=== PATIENT | female | born 1990 | race Caucasian/White ===

== ENCOUNTER 2019-12-06 12:59 | Outpatient (CLI) | payer BC, SELFPAY ==
[2019-12-06 13:30] LABS: Add Urine Microscopic? YES; Appearance Urine Clear (Clear); Bilirubin Urine Negative (Negative); Blood Urine Negative (Negative); Color Urine Straw (Yellow); Glucose Urine UA Negative (Negative); Ketones Urine Negative (Negative); Leukocyte Esterase Ur 1+ LEU/UL (NEGATIVE); Nitrate Urine Negative (Negative); Protein Urine Negative (Negative); Specific Grav Ur 1.014 (1.001-1.035); Squamous Epithelial Cell Urine Occasional /hpf (Few); Transitional Epi Cells Urine Rare /hpf (None Seen); Urobilinogen Urine Negative mg/dL (<2.0); WBC Urine 21-30 /hpf (0-3)
== END 2019-12-06 13:00 | disposition home or self-care (01) ==
PROVIDERS: Visit Provider Nurse Practitioner Women's Health
DX: R30.0 Dysuria (principal)
CPT/HCPCS: 81001; 87077; 87086; 87088; 87186

== ENCOUNTER 2020-12-25 14:31 | Outpatient (CLI) | payer OTHER, SELFPAY ==
--- NOTE | ~2020-12-25 | XR_ITS ---
EXAMINATION: XR abdomen/kub 1V INDICATION: Left-sided kidney stone TECHNIQUE: Supine views of the abdomen were obtained on 2 radiographs. COMPARISON: None FINDINGS: Adjacent stones measuring 10 mm and 6 mm are present in the left mid kidney. Bowel gas obsc ures visualization of the known right kidney stones. No definite stones are identified in the ureters or bladder. The lung bases are clear. The bowel gas pattern is normal. IMPRESSION: 1. Left nephrolithiasis. Reviewed, dictated and finalized at location A. IMPRESSION: 1. Left nephrolithiasis.
--- NOTE | ~2020-12-25 | CT_ITS ---
EXAMINATION: CT abdomen pelvis wo con DATE: 12/25/2020 14:58 INDICATION: Left-sided kidney stones TECHNIQUE: Computed tomography (CT) of the abdomen and pelvis was performed without intravenous contr ast. The dose-length product (DLP) was 247.16 mGy-cm. Automated exposure control and iterative recons truction technique were employed. COMPARISON: None FINDINGS: The lung bases are clear. The heart size is normal. The liver, spleen, pancreas, gallbladde r, and adrenal glands are normal. There are adjacent nonobstructing stones of the left mid kidney linda suring 12 mm and 6 mm. There are six nonobstructing stones of the right kidney which measure up to 3 mm. There is no hydronephrosis or hydroureter. No stones are identified in the ureters or bladder. Th ere are phleboliths of the pelvis. No pathologically enlarged abdominal or pelvic lymph nodes are kinjal ntified. There is no free intraperitoneal gas or evidence of bowel obstruction. A small volume of pel robyn ascites is likely physiologic. The appendix is normal. IMPRESSION: 1. Bilateral nonobstructing nephrolithiasis. Reviewed, dictated and finalized at location A.
== END 2020-12-25 14:32 | disposition home or self-care (01) ==
LOC: ANHIMG 14:32
PROVIDERS: Visit Provider Urology
DX: N20.0 Calculus of kidney (principal)
CPT/HCPCS: 74018; 74176

== ENCOUNTER → 2021-01-17 01:52 | Outpatient (CLI) | payer BC, SELFPAY ==
[2021-01-17 19:10] LABS: SARS-CoV-2 RNA PCR Negative
== END ==
PROVIDERS: Visit Provider Urology
DX: Z01.812 Encounter for preprocedural laboratory examination (principal); Z20.822 Contact with and (suspected) exposure to COVID-19
CPT/HCPCS: C9803; U0003; U0005

== ENCOUNTER 2021-01-17 10:49 | Outpatient (CLI) | payer BC, SELFPAY ==
[2021-01-17 11:15] LABS: Add Urine Microscopic? NO; Appearance Urine Clear (Clear); Bilirubin Urine Negative (Negative); Blood Urine Negative (Negative); Color Urine Colorless (Yellow); Glucose Urine UA Negative (Negative); Ketones Urine Negative (Negative); Leukocyte Esterase Ur Negative LEU/UL (Negative); Nitrate Urine Negative (Negative); Protein Urine Negative (Negative); Urobilinogen Urine Negative mg/dL (<2.0)
[2021-01-17 11:18] LABS: Specific Grav Ur 1.003 (1.001-1.035)
[2021-01-17 11:40] LABS: INR 0.9; Prothrombin Time 11.9 Seconds (11.1-14.7)
[2021-01-17 11:43] LABS: Partial Thromboplastin Time 24.5 SECONDS (22.3-36.8)
[2021-01-17 11:44] LABS: Beta HCG Quantitative < 2.39 mIU/ML
== END 2021-01-17 10:50 | disposition home or self-care (01) ==
LOC: ANHSURGERY 10:54
PROVIDERS: Visit Provider Urology
DX: N20.0 Calculus of kidney (principal); Z01.818 Encounter for other preprocedural examination
CPT/HCPCS: 36415; 81003; 84702; 85610; 85730

== ENCOUNTER 2021-01-20 02:32 | Day surgery (SDC) | payer BC, SELFPAY ==
--- NOTE | 2021-01-11 12:13 | PM.IMHP ---
H&P: HPI History of Present Illness Date/Time: 01/11/21 12:13 left kidney stone Chief Complaint: left kidney stone Review of Systems Review of Systems: All systems reviewed & are unremarkable except as noted in HPI and below Exam Const: General: cooperative and healthy appearing HENMT: Head: normal to inspection Eyes: General: appearance normal, both eyes and all related structures Resp: Effort & Inspection: normal respiratory effort and able to speak in complete sentences GI: Inspection: normal to inspection Skin: General skin exam: normal color Assessment and Plan Assessment and plan (1) Left renal stone: Code(s): N20.0 - Calculus of kidney Status: Acute Assessment and Plan: Left stent, left ESWL
[2021-01-17 09:07] VITALS: BMI 28.3
--- NOTE | 2021-01-18 10:04 | SUR.PREOP ---
Dr Cummings aware of most recent urine test results states will call in antibiotic later today and is ok to proceed with planned procedure on WedJanuary 20. This RN called and left message on patient voicemail to fern picker and start medication as prescribed
--- NOTE | 2021-01-19 13:01 | PM.IMHP ---
H&P: HPI History of Present Illness Date/Time: 01/19/21 13:01 Left renal stones/ recurrent UTI. On ABX Chief Complaint: left renal stone Review of Systems Review of Systems: All systems reviewed & are unremarkable except as noted in HPI and below [facility] Social History Social History Smoking status: Never smoker Alcohol intake: current Drinks per week: 1 Meds Home Medications and Allergies Home Medications Medication Instructions Recorded Confirmed Type sulfamethoxazole-trimethoprim 1 tablet PO HS 01/17/21 01/17/21 History Allergies Allergy/AdvReac Type Severity Reaction Status Date / Time No Known Allergies Allergy Verified 01/17/21 09:06 Exam Const: General: cooperative and healthy appearing HENMT: Head: normal to inspection Eyes: General: appearance normal, both eyes and all related structures Neck: Neck: normal visual inspection Resp: Effort & Inspection: not labored GI: Inspection: normal to inspection Skin: General skin exam: normal color Assessment and Plan Assessment and plan (1) Left renal stone: Code(s): N20.0 - Calculus of kidney Status: Acute Assessment and Plan: Left ESWL with Stetn
[2021-01-20] VITALS (7 sets, daily range): BP systolic 98–129; BP diastolic 61–79; PULSE 76–100; RESP 12–18; TEMP 36.5–36.9; O2SAT 100
--- NOTE | ~2021-01-20 | XR_ITS ---
EXAMINATION: XR abdomen/kub 1V INDICATION: Left kidney stones TECHNIQUE: Supine views of the abdomen were obtained on 2 radiographs. COMPARISON: 12/25/2020 FINDINGS: There are stones measuring 10 mm and 8 mm in the left kidney. Phleboliths are noted in the pelvis. The known punctate right kidney stones are obscured by bowel contents. The bowel gas pattern is normal. IMPRESSION: 1. Left nephrolithiasis. Reviewed, dictated and finalized at location B. IMPRESSION: 1. Left nephrolithiasis.
--- NOTE | 2021-01-20 07:13 | WPDHPUPDATE1 ---
History and Physical Update Update Date/Time: 01/20/21 07:13 History and Physical has been reviewed, including an updated exam of the patient. There are NO changes in the patient's condition. Risks, benefits, and alternatives have been discussed and questions answered. Patient agrees to proceed with procedure.
--- NOTE | 2021-01-20 07:54 | P.PNAN_ITS ---
Anes - Initial Pre Proc Eval Procedure: Operation Date: 01/20/21 10:30 Proposed Procedures p Left Extracorporeal Shock Wave Lithotripsy(Left) - Dm Cummings MD s Cystoscopy, Bilateral Stent Placement - Dm Cummings MD Date/Time: 01/20/21 07:54 Surgeon: Dm Cummings MD Pre Op Diagnosis: Left Kidney Stone Patient Data Age: 31 Gender: F Height: 1.55 m Weight: 68 kg Allergies Allergy/AdvReac Type Severity Reaction Status Date / Time No Known Allergies Allergy Verified 01/20/21 09:34 Home Medications Medication Instructions Recorded Confirmed Type sulfamethoxazole-trimethoprim 1 tablet PO HS 01/17/21 01/20/21 History ciprofloxacin HCl 250 mg PO Q12H 01/20/21 01/20/21 History Patient hx anesthesia problems: none Family hx anesthesia problems: none [facility] Past Medical History Medical History (Updated 01/20/21 @ 09:59 by John Diaz DO) Renal stones Social History Social History Smoking status: Never smoker Alcohol intake: current Drinks per week: 1 Living arrangements: with family Anes - Eval Final PreProcedure Day of Procedure 01/20/21 07:54 Patient weight: overweight Heart: regular rate and rhythm Lungs: clear to auscultation and normal air movement Airway: Mallampati scale class II Neurological: alert and oriented Last oral intake: >/= 8 hours ASA classification: II Emergent: no Anesthetic plan: proceed Anesthesia type and monitoring: general LMA and standard monitoring Informed Consent: The patient's anesthetic plan and its attendant risks and benefits were discussed with the patient/family/POA. Questions were solicited and answers provided to the satisfaction of the patient/family/POA.
[2021-01-20] MEDS: LACTATED RINGERS 1,000 ML 30 ML IV CONT ×2 (09:22→11:38)
[2021-01-20] MEDS: ceFAZolin 2 GM/D5W 50 ML 2 GM/50 ML BAG IVPB (10:47)
--- NOTE | 2021-01-20 11:45 | W.PM.PROC2 ---
Procedure Note - Detailed Date of Procedure 01/20/21 Pre-op Diagnosis Left Kidney Stone Post-op Diagnosis same Procedure Performed cystoscopy left retrograde pyelogram left stent left extracorporeal shockwave lithotripsy Surgeon Dm Cummings MD Anesthesia general Indications this is a woman with a large left renal stone as well as recurrent urinary tract infections. I offered her lithotripsy, ureteroscopy, percutaneous procedures. She opted for lithotripsy. She understands there may be more than 1 procedure required to clear her stone Findings large left renal stone x2. Narrow infundibulum Description of Procedure she is correctly identified. Informed consent obtained. From the operating room. She was given general anesthesia. She was placed in a frogleg position. She was prepped and draped in a sterile fashion. Time-out performed. She was given appropriate perioperative antibiotics. I performed cystoscopy. The bladder is exam was normal. I located the left ureteral orifice. I placed a guidewire to the kidney. I then placed a 5 Albanian angiographic catheter. I shot a retrograde pyelogram. I outlined renal anatomy. The stone was seen in the midpole calyx. The infundibulum was somewhat narrow. I then placed a 4.8 variable length stent. Proximal coil was in the upper pole kidney. Distal coil in the bladder. She was then repositioned for lithotripsy. The stone was targeted. We delivered 2500 shocks. Power level 1-4. There appeared to be excellent fragmentation of the stone within the mid pole calyx. At the conclusion she was awakened transferred to PACU in stable condition. Implants None Estimated Blood Loss 1 Drains No Packing No Pathology none sent Complications No immediate complications Condition stable Disposition PACU
== END 2021-01-20 13:10 | disposition home or self-care (01) ==
PROVIDERS: Visit Provider Urology
PROC: (CPT 50590; principal; 2021-01-20 10:30)
PROC: (CPT 52352; 2021-01-20 10:30)
DX: N20.0 Calculus of kidney (principal); Z87.440 Personal history of urinary (tract) infections
CPT/HCPCS: 50590; 52332; 36415; 74018; 81003; 84702; 85610; 85730; A9270; C1769; C1887; C2617; C9803; J0690; J1100; J2250; J2405; J2704; J3010; J7030; J7120; Q9966; U0003; U0005

== ENCOUNTER 2021-02-10 15:43 | Outpatient (CLI) | payer BC, SELFPAY ==
--- NOTE | ~2021-02-10 | XR_ITS ---
EXAMINATION: XR abdomen/kub 1V DATE: 02/10/2021 16:06 INDICATION: Bilateral nephrolithiasis post recent lithotripsy TECHNIQUE: A supine view of the abdomen on 2 radiographs was obtained. COMPARISON: 01/20/2021 FINDINGS: Left internal ureteral stent with loops formed over the expected position of the left renal pelvis an d the bladder. There is approximately 1.4 x 1.1 cm stippled appearing calcification in the mid left k idney at the site of a couple prior more homogeneous-appearing 10 mm and 6 mm left renal stones likel y reflecting fragmentation related to interval lithotripsy. There appear to be 3 additional 1-[address] one fragments projecting over the lower pole of the left kidney. No stone fragments seen along the ur eteral stent.-2 mm stone projecting over the upper pole of the right kidney. A couple small phlebolit hs in the left hemipelvis. Normal bowel gas pattern with small amount of stool scattered throughout t he colon. Lung bases are clear. Heart size is normal. IMPRESSION: 1. Stippled appearance of a 1.4 x 1.1 cm calcification the site of previously 10 mm and 6 mm stones a t the mid left kidney likely reflecting fragmentation related to interval lithotripsy with a few linwood tional tiny stone fragments at the lower pole. 2. No stone fragments seen along a left intrarenal stent which is in expected position. 3. 1-2 mm stone at the upper pole of the right kidney. Reviewed, dictated and finalized at location A. IMPRESSION: 1. Stippled appearance of a 1.4 x 1.1 cm calcification the site of previously 1 0 mm and 6 mm stones at the mid left kidney likely reflecting fragmentation rel ated to interval lithotripsy with a few additional tiny stone fragments at the lower pole. 2. No stone fragments seen along a left intrarenal stent which is in expected p osition. 3. 1-2 mm stone at the upper pole of the right kidney.
== END 2021-02-10 15:44 | disposition home or self-care (01) ==
PROVIDERS: Visit Provider Urology
DX: N20.0 Calculus of kidney (principal); Z96.0 Presence of urogenital implants
CPT/HCPCS: 74018

== ENCOUNTER 2022-05-31 17:42 | Emergency (ER) | payer BC, SELFPAY ==
[2022-05-31 17:48] VITALS: BP 128/75; PULSE 122; RESP 18; TEMP 38.2; O2SAT 100
--- NOTE | 2022-05-31 18:13 | ED.URI ---
HPI - URI/Sore Throat General Chief Complaint: Upper Respiratory Infection Stated Complaint: Sore Throat, Ears Irritation, Fever Time Seen by Provider: 05/31/22 18:13 History of Present Illness HPI Narrative: 32-year-old female presented for complaint of sore throat, fever and bilateral ear pain for 2 days. Endorses temp up to 101 at home. Took ibuprofen, mucinex and flonase. Endorses daughter is sick with a cough. She denies shortness of breath, wheezing, nausea, vomiting, diarrhea. Patient states she has taken 5 positive tests at home. LMP 05/04/2022. She will fu with obgyn. Related Data Home Medications Medication Instructions Recorded Confirmed No Home Medications 05/31/22 05/31/22 Allergies Allergy/AdvReac Type Severity Reaction Status Date / Time No Known Allergies Allergy Verified 05/31/22 18:05 Review of Systems Review of Systems: CONSTITUTIONAL: Denies body aches EYES: Denies visual changes, redness, or discharge. ENT: Denies rhinorrhea, congestion CARDIOVASCULAR: Denies chest pain, palpitations, or edema. RESPIRATORY: Denies dyspnea. GASTROINTESTINAL: Denies abdominal pain, nausea, vomiting, or diarrhea. SKIN: Denies rash, itching, or wounds. MUSCULOSKELETAL: Denies back pain, joint pain, or myalgia. NEUROLOGIC: Denies headache PMFSH Past Medical History Medical History Renal stones Social History Social History Smoking status: Never smoker Alcohol intake: current Drinks per week: 1 Exam Narrative: GENERAL: well-appearing EYES: conjunctivae clear ENT: Mucous membranes moist. TMs pearly chavez with normal light reflex bilaterally; no tragal tenderness. Oropharynx erythematous without lesions. Tonsils not enlarged and without exudate. No drooling, no hoarseness, no trismus, uvula midline. No tripod positioning, hot potato voice, or soft palate swelling. NECK: Supple. No lymphadenopathy CHEST: Clear to auscultation, breath sounds equal. No respiratory distress, speaks in full sentences. HEART: Regular rate and rhythm. No murmur heard. SKIN: Warm, dry, no rash. NEURO: Alert and oriented x3. Course Course Emergency Course: Patient is aware of diagnosis, understands and agrees to treatment plan. Anticipatory guidance given. Patient agrees to follow-up as directed and is aware of reasons to seek care at the emergency department. Portions of this record may have been created with voice recognition software Level of Care: Express Care Visit Vital Signs Vital signs: Vital Signs Temperature 100.8 F H 05/31/22 17:48 Pulse Rate 122 H 05/31/22 17:48 Respiratory Rate 18 05/31/22 17:48 Blood Pressure 128/75 05/31/22 17:48 Pulse Oximetry 100 05/31/22 17:48 Oxygen Delivery Room Air 05/31/22 17:48 Temperature 100.8 F H 05/31/22 17:48 Pulse Rate 122 H 05/31/22 17:48 Respiratory Rate 18 05/31/22 17:48 Blood Pressure 128/75 05/31/22 17:48 Pulse Oximetry 100 05/31/22 17:48 Oxygen Delivery Room Air 05/31/22 17:48 MDM - URI/Sore Throat MDM Narrative Medical decision making narrative: Neg strep and flu results reviewed with pt. Advise supportive treatments. Patient is appropriate for outpatient treatment and follow-up. Differential Diagnosis Differential diagnosis: Likely upper respiratory infection, viral infection and pharyngitis Lab Data Labs: Influenza A Screen Negative Reference Range: Negative Influenza B Screen Negative Reference Range: Negative Strep Screen Presumptive Negative *(Reference Range: Negative)* Discharge Plan Discharge Clinical Impression: Viral infection Patient Disposition: Home, Self-Care Condition: Stabl
== END 2022-05-31 18:50 | disposition home or self-care (01) ==
PROVIDERS: Emergency Provider Nurse Practitioner Family
DX: B34.9 Viral infection, unspecified (principal)
CPT/HCPCS: 87081; 87804; 87880; 99213; G0463

== ENCOUNTER → 2022-09-26 10:16 | Outpatient (CLI) | payer BC, SELFPAY ==
--- NOTE | ~2022-09-26 | US_ITS ---
EXAMINATION: US OB /maternal detail DATE: 09/26/2022 11:22 INDICATION: Encounter for screening, unspecified. TECHNIQUE: Real-time ultrasound of the pelvis was performed. COMPARISON: None. FINDINGS: There is a single living fetus in vertex presentation. The placenta is anterior, 4.4 cm from the cer vix. The cervical length is 5.0 cm on transabdominal images, which is normal. heart rate is mason ts per minute (bpm). The amniotic fluid volume is subjectively normal. The following biometric data were obtained: Biparietal diameter (BPD): 4.9 cm; head circumference (HC): 18.7 cm; abdominal circumference (AC): 15 .5 cm; femur length (FL): 3.5 cm. These measurements are concordant. Estimated weight is 386 g +/- 58 g, which correlates with the 57th percentile when 02/08/23 is us ed as estimated date of delivery. As single measurements, these parameters are each equal to the following estimated gestational ages: BPD: 20 weeks 5 days. HC: 21 weeks 0 days. AC: 20 weeks 5 days. FL: 21 weeks 1 days. estimated gestational age based solely on measurements from this exam is 20 weeks 6 days +/- 1 weeks 3 days. The cerebral ventricles, cerebellum, cisterna magna, nuchal fold, and visualized portions of the spin e are normal. The heart is normal. The diaphragm, stomach, kidneys, and bladder are normal. There are two umbilical arteries to yield a 3-vessel cord. The cord insertion is normal. IMPRESSION: 1. Single living fetus in vertex presentation. 2. Estimated weight is 386 g +/- 58 g, which correlates with the 57th percentile when 02/08/23 i s used as estimated date of delivery. 3. Normal anatomic survey. Reviewed, dictated and finalized at location A. IMPRESSION: 1. Single living fetus in vertex presentation. 2. Estimated weight is 386 g +/- 58 g, which correlates with the 57th pe rcentile when 02/08/23 is used as estimated date of delivery. 3. Normal anatomic survey.
== END ==
PROVIDERS: PCP Obstetrics & Gynecology Gynecologic Oncology; Visit Provider Obstetrics & Gynecology Gynecologic Oncology
DX: Z36.9 Encounter for antenatal screening, unspecified (principal); Z3A.20 20 weeks gestation of pregnancy
CPT/HCPCS: 76805

== ENCOUNTER 2022-12-12 12:14 | Outpatient (RCR) | payer BC, SELFPAY ==
[2022-12-13] MEDS: RHO(D) IMMUNE GLOBULIN 300 MCG/2 ML SYRINGE IM (08:21)
== END 2023-03-12 23:59 | disposition home or self-care (01) ==
LOC: ANHLAB 12:14
PROVIDERS: Visit Provider Advanced Practice Midwife
DX: Z29.13 Encounter for prophylactic Rho(D) immune globulin (principal); O36.0190 Maternal care for anti-D [Rh] antibodies, unspecified trimester, not applicable or unspecified; Z3A.00 Weeks of gestation of pregnancy not specified
CPT/HCPCS: 36415; 85461; 86850; 86900; 86901; 90384; 96372; J2790

== ENCOUNTER 2023-01-15 12:01 | Outpatient (CLI) | payer BC, SELFPAY ==
[2023-01-15 12:31] VITALS: BP 124/76; PULSE 99
[2023-01-15 12:36] LABS: Basophils Percent Auto 0.3 % (0.2-1.2); Eosinophils Absolute Auto 0.1 K/mm3 (0-0.3); Eosinophils Percent Auto 0.6 % (0-4.4); Hematocrit 32.8 % (37.0-47.0); Hemoglobin 11.1 g/dL (12.0-15.0); Immature Granulocyte Absolute 0.21 K/mm3 (0.00-0.031); Immature Granulocyte Percent A 1.8 % (0-0.5); Lymphocytes Absolute Auto 1.45 K/mm3 (0.9-3.2); Lymphocytes Percent Auto 12.7 % (18.3-44.2); Mean Corpuscular HGB Conc 33.8 g/dl (32-36); Mean Corpuscular Hemoglobin 31.8 pg (26-34); Mean Platelet Volume 8.6 fl (7.4-10.4); Monocytes Absolute Auto 0.7 K/mm3 (0.1-0.6); Monocytes Percent Auto 6.4 % (2.6-8.5); Neutrophils Absolute Auto 8.9 K/mm3 (1.3-6.7); Neutrophils Percent Auto 78.2 % (45.5-73.1); Platelet Count Result 295 k/mm3 (150-375); Red Blood Count 3.49 M/mm3 (4.2-5.4); Red Cell Distribution Width 14.3 % (11.5-14.5); White Blood Count 11.4 K/mm3 (4.5-10.0)
[2023-01-15 12:45] VITALS: BP 129/81; PULSE 111
[2023-01-15 12:46] LABS: Creatinine Urine 39.4 mg/dL; Total Protein Urine Random 13 mg/dL; Ur Ttl Prot Creatinine Ratio 0.33 mg/mg (0-0.20)
[2023-01-15 12:47] LABS: Appearance Urine Clear (Clear); Bacteria Urine None Seen /hpf; Bilirubin Urine Negative (Negative); Blood Urine Negative (Negative); Color Urine Yellow (Yellow); Glucose Urine UA Negative (Negative); Ketones Urine Negative (Negative); Leukocyte Esterase Ur Trace LEU/UL (NEGATIVE); Nitrate Urine Negative (Negative); Non Pathogenic Casts 0-2; Protein Urine Negative (Negative); RBC Urine 0-2 /hpf (0-2); Specific Grav Ur 1.007 (1.001-1.035); Squamous Epithelial Cell Urine None seen /hpf (Few); Urobilinogen Urine 0.2 mg/dL (<2.0); WBC Urine 0-5 /hpf (0-3); pH Urine 7.5 (5.0-9.0)
[2023-01-15 12:51] LABS: Alanine Aminotransferase 23 U/L (6-35); Albumin Level 3.5 g/dL (3.5-5.1); Alkaline Phosphatase 113 U/L (38-126); Anion Gap 6 mmol/L (8-16); Aspartate Amino Transferase 25 U/L (14-36); Bilirubin,Total 0.4 mg/dL (0.2-1.3); Blood Urea Nitrogen 11 mg/dL (7-17); Carbon Dioxide 24 mmol/L (22-30); Chloride 104 mmol/L (98-107); Estimated Glomerular Filt Rate > 60; Glucose 84 mg/dL (65-110); Sodium 134 mmol/L (137-145); Uric Acid 3.8 mg/dL (2.5-7.5)
[2023-01-15 13:05] LABS: Add Urine Microscopic? YES
--- NOTE | 2023-01-15 13:23 | PC.NURSE ---
Cari Campbell CNM notified of lab results, NST, vital signs. Send home with 24 hour urine. Gave patient precautions on pre-e, instructions on when to return back and 24 hour urine collection process. Patient in agreement with plan.
[2023-01-15 13:25] VITALS: BP 124/76
== END 2023-01-15 13:24 | disposition home or self-care (01) ==
LOC: ANHOBOP 12:08 → ANHOBPP 12:15
PROVIDERS: Advanced Practice Midwife; Visit Provider Obstetrics & Gynecology
DX: O13.9 Gestational [pregnancy-induced] hypertension without significant proteinuria, unspecified trimester (principal); Z3A.00 Weeks of gestation of pregnancy not specified
CPT/HCPCS: 36415; 59025; 80053; 81001; 82570; 84156; 84550; 85025; 87086; 99199

== ENCOUNTER 2023-01-16 17:26 | Outpatient (CLI) | payer BC, SELFPAY ==
[2023-01-16 17:27] VITALS: BMI 38.9
[2023-01-16 17:42] LABS: Collection Time Urine 24 HOURS
[2023-01-16 17:57] LABS: Creatinine Urine 30.6 mg/dL; Patient Weight 206 Lbs; Total Protein Urine Random 14 mg/dL
[2023-01-16 18:56] LABS: Creatinine Clearance Urine 74.7 ml/min (75-125); Total Protein Urine 24 Hr 434 mg/24hr (28-141); Total Volume 24 Hour Urine 3100 ml
[2023-01-16 19:00] LABS: Specific Gravity Ur 1.015
== END 2023-01-16 17:27 | disposition home or self-care (01) ==
LOC: ANHOBOP 17:26
PROVIDERS: Visit Provider Advanced Practice Midwife
DX: O13.9 Gestational [pregnancy-induced] hypertension without significant proteinuria, unspecified trimester (principal); Z3A.00 Weeks of gestation of pregnancy not specified
CPT/HCPCS: 81050; 82575; 84156

== ENCOUNTER 2023-01-18 10:36 | Outpatient (RCR) | payer BC, SELFPAY ==
[2023-01-18 11:35] VITALS: BP 132/78; PULSE 104
== END 2023-01-19 09:10 | disposition home or self-care (01) ==
LOC: ANHOBOP 10:36
PROVIDERS: Visit Provider Advanced Practice Midwife
DX: O14.93 Unspecified pre-eclampsia, third trimester (principal); Z3A.37 37 weeks gestation of pregnancy
CPT/HCPCS: 59025

== ENCOUNTER 2023-01-20 06:02 | Inpatient (IN) | payer BC, SELFPAY ==
[2023-01-20] VITALS (227 sets, daily range): BP systolic 92–142; BP diastolic 44–115; PULSE 25–183; TEMP 36.6–37; O2SAT 73–100; BMI 38.7
--- NOTE | 2023-01-20 06:02 | LDADM ---
This patient, Ana Goodman, was admitted to Labor/Delivery/Recovery 107 on 01/20/23 at 06:02. Plans for labor, pain management and were discussed with patient. Patient/family oriented to hospital policies and general routines including ID bracelet, bed and alarms, visiting hours, pain management, procedures, bathroom and other care routines, personal items, smoking policy, room service/diet and guest tray routines, security routines, and visiting hours. Patient/Family are encouraged to report perceived risks to care and to ask questions if they do not understand what they are told or what they should do. See OBIX for further documentation.
--- NOTE | 2023-01-20 06:38 | P.PNAN_ITS ---
Anes - Eval Pre Procedure Procedure: labor epidural Date/Time: 01/20/23 06:38 Surgeon: sugar Preop Diagnosis: pain during labor Pre Op Diagnosis: IOL Patient Data Age: 33 Gender: F Height: Weight: Allergies Allergy/AdvReac Type Severity Reaction Status Date / Time No Known Allergies Allergy Verified 01/15/23 12:35 Home Medications Medication Instructions Recorded Confirmed Type aspirin 81 mg tablet 81 mg PO DAILY 01/15/23 01/15/23 History vits no.126-ferrous fum 1 tablet PO DAILY 01/15/23 01/15/23 History 28 mg iron-folic acid 800 mcg tablet (Classic ) Patient hx anesthesia problems: none Family hx anesthesia problems: none Results Review: All pre-operative results and documents have been reviewed as part of the pre- operative evaluation. PMF Past Medical History Medical History (Updated 01/20/23 @ 06:38 by Lena Sanchez CRNA) IUP (intrauterine ), incidental Renal stones Family History Family History (Updated 01/15/23 @ 12:37 by Smiley Ellison RN) Father Hypertension Social History Social History Smoking status: Never smoker Alcohol intake: current Drinks per week: 1 Substance use: never Living arrangements: with family Spiritual care concerns: No Exam Day of Procedure 01/20/23 06:38
[2023-01-20 06:56] LABS: Basophils Percent Auto 0.4 % (0.2-1.2); Eosinophils Absolute Auto 0.1 K/mm3 (0-0.3); Hemoglobin 11.4 g/dL (12.0-15.0); Lymphocytes Absolute Auto 1.54 K/mm3 (0.9-3.2); Mean Corpuscular HGB Conc 34.5 g/dl (32-36); Mean Corpuscular Hemoglobin 31.7 pg (26-34); Mean Corpuscular Volume 91.7 fl (80-100); Mean Platelet Volume 8.7 fl (7.4-10.4); Monocytes Absolute Auto 0.6 K/mm3 (0.1-0.6); Monocytes Percent Auto 5.8 % (2.6-8.5); Neutrophils Absolute Auto 7.8 K/mm3 (1.3-6.7); Neutrophils Percent Auto 75.8 % (45.5-73.1); Platelet Count Result 302 k/mm3 (150-375); White Blood Count 10.2 K/mm3 (4.5-10.0)
[2023-01-20 07:12] LABS: Alanine Aminotransferase 23 U/L (6-35); Albumin Level 3.7 g/dL (3.5-5.1); Alkaline Phosphatase 113 U/L (38-126); Anion Gap 6 mmol/L (8-16); Aspartate Amino Transferase 25 U/L (14-36); Bilirubin,Total 0.4 mg/dL (0.2-1.3); Blood Urea Nitrogen 7 mg/dL (7-17); Calcium 9.6 mg/dL (8.4-10.2); Carbon Dioxide 23 mmol/L (22-30); Chloride 106 mmol/L (98-107); Estimated CRCL calculation 81 ml/min; Estimated Glomerular Filt Rate > 60; Glucose 116 mg/dL (65-110); Potassium 3.2 mmol/L (3.4-5.0); Sodium 135 mmol/L (137-145)
[2023-01-20] MEDS: OXYTOCIN 30 UNITS/NS 500 ML 30 UNITS/500 ML BAG IV CONT (07:17)
[2023-01-20] MEDS: LACTATED RINGERS 1,000 ML 125 ML IV CONT ×3 (07:17→16:57)
[2023-01-20 07:37] LABS: Rubella IgG Antibody 10.8 IU/ML
--- NOTE | 2023-01-20 07:39 | WPDOBADMIT ---
Obstetrics - Admit Note Admission Note: record reviewed. No pertinent additions to the history and/or any subsequent changes in the physical findings that are not consistent with the expected course of the were found. IOL preeclampsia w/o severe features, blood pressures normotensive at rest. currentley denies headache, visual changes, epigastric pain, bilateral 1+ edema lower extremities, anticipate vaginal delivery Additions to the history and/or subsequent changes in the physical findings follow. None.
[2023-01-20 07:47] LABS: Hepatitis B Surface Antigen Negative (Negative)
[2023-01-20] MEDS: miSOPROStol 25 MCG TABLET PO (08:11)
[2023-01-20 11:07] LABS: Uric Acid 4.3 mg/dL (2.5-7.5)
--- NOTE | 2023-01-20 12:42 | PM.OBPNLAB ---
Pain Control Date/time seen: 01/20/23 12:42 SVE 260/-2 AROM moderate amount of clear, odorless fluid, IUPC placed, anticipate vaginal delivery FHR category 1
[2023-01-20 12:44] LABS: Rapid Plasma Reagin Non-Reactive (NonReactive)
[2023-01-20] MEDS: ONDANSETRON INJ 4 MG/2 ML VIAL IV PUSH (12:57)
[2023-01-20] MEDS: SODIUM CHLORIDE 0.9% IV 300 ML 600 ML I-UTERINE (21:31)
[2023-01-21] VITALS (13 sets, daily range): BP systolic 108–143; BP diastolic 52–91; PULSE 84–152; RESP 16–18; TEMP 36.5–37.3; O2SAT 96–99
[2023-01-21] MEDS: ONDANSETRON INJ 4 MG/2 ML VIAL IV PUSH (00:11)
--- NOTE | 2023-01-21 00:22 | PM.OBPRVD ---
OB - Delivery Note Procedure Delivery date: 01/21/23 Procedure: Events: Preeclampsia w/o severe features Induction method: AROM, Per Misoprostol Protocol and Per Pitocin Protocol Delivery monitor: External FHT, External Uterine and Internal Uterine Route of delivery: Laceration Description: Superficial Delivery repair: vicryl (1 stitch) Specimen: Yes Quantitative Blood Loss (ml): 85 Anesthesia type: Epidural Disposition: Floor Baby Date of : 01/21/23 Time of : 00:13 Weeks of gestation at delivery: 37 gender: Female Weight (pounds): 7 Weight (ounces): 5 presentation: vertex position: Left Occiput Anterior Placenta delivery description: Spontaneous Cord Vessel Description: 3 Vessels, Nuchal Cord, Loose, Reduced, Clamped/Cut and Around Extremity (x1) score one minute: 8 score five minutes: 9 Narrative: mother and baby in stable condition
[2023-01-21] MEDS: OXYTOCIN 30 UNITS/NS 500 ML 30 UNITS/500 ML BAG 125 UNITS IV CONT (00:57)
[2023-01-21] MEDS: IBUPROFEN 600 MG TABLET PO ×3 (01:31→20:15)
[2023-01-21] MEDS: ACETAMINOPHEN 325 MG TABLET 650 MG PO ×2 (03:44→15:00)
--- NOTE | 2023-01-21 09:11 | PM.OBPNVD ---
OB - PN: Subj Subjective Date/time seen: 01/21/23 09:11 Patient comments: no complaints, pain well controlled, incisional pain, tolerating diet and flatus present OB - PN: Obj Data Labs 01/20/23 06:42 01/20/23 06:42 Labs: Laboratory Results - last 24 hr 01/20/23 01/20/23 06:42 06:43 Uric Acid 4.3 RPR Non-reactive Antibody Identification Passive Due to RH Imm Glob Antigen Identification Cancelled SKINNY, IgG Interpret Not Performed SKINNY, Poly Interpret Negative SKINNY, Complement Interp Not Performed OB - PN A/P Plan day: 1 Plan: routine care Comments: No problems, routine care Time Spent With Patient Time: Total time spent is greater than 50% in coordination of care (as documented) at patient's floor/unit and/or counseling patient: Exam Const: General: comfortable, no acute distress and alert Resp: Effort & Inspection: normal respiratory effort Auscultation: no crackles, no rales and no rhonchi Cardio: Rate: regular rate Heart sounds: no click, no murmurs and no rubs GI: Inspection: non-distended GI Palp: No Tenderness to palpation present (GI) Auscultation: normal bowel sounds Other: Incision - CDI Extrem: General: normal to inspection, no pedal edema and no calf tenderness
[2023-01-21] MEDS: DOCUSATE SODIUM 100 MG CAPSULE PO (09:22)
[2023-01-22] MEDS: ACETAMINOPHEN 325 MG TABLET 650 MG PO (00:22)
[2023-01-22 01:00] VITALS: BP 115/73; PULSE 83; RESP 18; TEMP 36.5; O2SAT 98
[2023-01-22 07:32] LABS: Hematocrit 28.3 % (37.0-47.0); Hemoglobin 9.6 g/dL (12.0-15.0)
[2023-01-22 07:55] VITALS: BP 115/77; PULSE 95; RESP 18; TEMP 36.7; O2SAT 98
--- NOTE | 2023-01-22 07:55 | P.PNOB_ITS ---
OB - PN: Subj Subjective Date/time seen: 01/22/23 07:55 s/p vaginal delivery day 1 OB - PN: Obj Data Labs 01/20/23 06:42 01/20/23 06:42 OB - PN A/P Plan day: 1 Plan: routine care Time Spent With Patient Time: Total time spent is greater than 50% in coordination of care (as documented) at patient's floor/unit and/or counseling patient: Review of Systems 2 Review of Systems: All systems reviewed & are unremarkable except as noted in HPI and below Exam Const: General: cooperative and healthy appearing Chest: Chest palpation & inspection: normal inspection of the chest Resp: Effort & Inspection: normal respiratory effort Cardio: Rate: regular rate Rhythm: regular rhythm GI: Inspection: normal to inspection Back/Spine/Pelvis: Back: no CVA tenderness Skin: General skin exam: normal color Extrem: Right lower extremity: normal to inspection Left lower extremity: normal to inspection
--- NOTE | 2023-01-22 07:57 | PM.OBDSVD ---
DS: Admitting Diagnosis Discharge Date 01/22/23 Admitting Diagnosis IOL OB - DS: Summary OB Procedures : None OB Procedures Intrapartum: Spontaneous Vag Delivery OB Procedures: : None Time Spent with Patient Time attestation: Total time spent providing and/or coordinating discharge services: DS: Data Data Completed and Pending Pending studies at discharge: Pending at discharge 01/21/23 00:15 Surgical [PTH] Routine Labs on day of discharge: Labs from last 24 hours 01/22/23 00:32 Hgb 9.6 L Hct 28.3 L Discharge Plan Discharge Attending physician on discharge: Ziggy Villareal Discharging Clinician: Zoey Campbell Patient Disposition: Home, Self-Care Activity: pelvic rest Diet: regular Patient Instructions: Antibiotic Form Stand Alone Forms: General Discharge Information Follow-up/Referrals: Ziggy Villareal MD [Physician] - Discharge Medications: New ibuprofen 600 mg Tablet 600 mg PO Q6H PRN (Reason: Cramping) Qty: 30 0RF Continued Adult Aspirin 81 mg Tablet 81 mg PO DAILY Classic 28 mg iron- 800 mcg Tablet 1 tablet PO DAILY Date of admission: 01/20/23 06:02 Primary Care Provider: Sandra Flores I Admitting Provider: Ziggy Villareal Attending physician on admission: Ziggy Villareal Condition: Stable
[2023-01-22] MEDS: POLYSACCHARIDE IRON COMPLEX 150 MG CAPSULE PO (08:22)
[2023-01-22] MEDS: DOCUSATE SODIUM 100 MG CAPSULE PO (08:23)
[2023-01-22] MEDS: IBUPROFEN 600 MG TABLET PO (08:24)
--- NOTE | 2023-01-22 08:42 | PC.NURSE ---
Ibuprofen 600mg given at 0245 01/22. Pain 10/12. Pain reassessed 1 hour later 09/11
--- NOTE | 2023-01-22 10:53 | PC.NURSE ---
Patient was given the opportunity to view the discharge video Mother & Baby Care, The First Two Weeks and to ask questions. Patient declined viewing the video and has been given the mother/baby guide for home reference.
--- NOTE | 2023-01-22 14:22 | WPDANLDPN2 ---
Anes-Prog Note L&D Date/Time: 01/22/23 14:22 Neuro status: Neuro function grossly intact. Vital Signs: Last Vital Signs Temp 36.7 C 01/22/23 07:55 Pulse 95 01/22/23 07:55 Resp 18 01/22/23 07:55 BP 115/77 01/22/23 07:55 Pulse Ox 98 01/22/23 07:55 O2 Del Method Room Air 01/22/23 01:00 Pain score (VAS): 0 I/O: Intake & Output 01/21/23 01/22/23 01/22/23 23:59 07:59 15:59 Intake Total 450 490 Output Total 930 400 Balance -480 90 Patient feedback: Patient satisfied with anesthetic care.
[2023-01-23 08:38] VITALS: BP 126/82; PULSE 96; RESP 18; TEMP 36.6; O2SAT 100
--- NOTE | 2023-01-25 13:24 | P.DS_ITS ---
DS: Admitting Diagnosis Discharge Date 01/22/23 Admitting Diagnosis Preeclampsia, IOL DS: Discharge Diagnosis Discharge Diagnosis (1) Vaginal delivery: Code(s): O80 - Encounter for full-term uncomplicated delivery Status: Acute OB - DS: Summary OB Procedures : PIH Mgmt OB Procedures Intrapartum: Spontaneous Vag Delivery OB Procedures: : None Time Spent with Patient Time attestation: Total time spent providing and/or coordinating discharge services: DS: Data Data Completed and Pending Completed studies during hospitalization: Pending at discharge 01/21/23 00:15 Surgical [PTH] Routine Discharge Plan Discharge Attending physician on discharge: Ziggy Villareal Consulting providers: Zoey Campbell; Lena Sanchez; Arlyn Swartz Discharging Clinician: Zoey Campbell Patient Disposition: Home, Self-Care Activity: pelvic rest Diet: regular Discharge Instructions: Education: Mom and Baby Guide Given to: Mother Follow-Up: Call your delivering provider's office for an appointment to be seen in: 4 Weeks Mom and baby should come to the [facility] for the follow-up appointment. Appointment Date/Time: Monday, January 23, 2023 at 8:00 a.m. What to expect at your follow-up visit: Blood Pressure Check Physical Assessment Call [phone] if you are unable to keep your appointment time. BREAST CARE: * Wear a snug supportive bra. * For engorgement discomfort: Bottle Feeding: * May apply ice packs EPISIOTOMY/PERINEAL CARE: * Until bleeding stops, use your ligia bottle after urinating * Change your pad frequently throughout the day * You may take sitz baths several times a day (fill your bathtub with warm water and soak for 20 minutes.) Do NOT bathe in the water * No tub baths until seen by your physician - You may shower ACTIVITY: * Rest as much as possible. * Do not exercise or lift anything heavier than your baby (such as laundry or other children.) * Avoid stairs or driving as much as possible. * Do not put anything into the vagina. No douching, tampons, or sexual activity until seen by physician. NOTIFY PHYSICIAN IF YOU HAVE ANY QUESTIONS OR IF ANY OF THE FOLLOWING SYMPTOMS OCCUR: * If your perineum becomes red, swollen, or more painful than what you have experienced in the hospital. * If your vaginal bleeding becomes foul smelling. * If your vaginal bleeding becomes more heavy than a period or if your bleeding changes from pink to bright red. However, you may pass an occasional walnut- sized clot once or twice for the first week . * If you experience a sharp, shooting pain in you calves. DIET: * Eat regular, well-balanced meals. * Drink plenty of fluids daily. Stand Alone Forms: General Discharge Information Follow-up/Referrals: Ziggy Villareal MD [Physician] - 4 Weeks Discharge Medications: New ibuprofen 600 mg Tablet 600 mg PO Q6H PRN (Reason: Cramping) Qty: 30 0RF Continued aspirin 81 mg Tablet 81 mg PO DAILY Classic 28 mg iron- 800 mcg Tablet 1 tablet PO DAILY Date of admission: 01/20/23 06:02 Primary Care Provider: Sandra Flores I Admitting Provider: Ziggy Villareal Attending physician on admission: Ziggy Villareal Condition: Stable
== END 2023-01-22 14:20 | disposition home or self-care (01) | DRG 807 ==
LOC: ANHLDR 06:08 → ANHOB2 01-21 03:14
PROVIDERS: Advanced Practice Midwife; Admitting Provider Obstetrics & Gynecology; Visit Provider Obstetrics & Gynecology
DX: O14.04 Mild to moderate pre-eclampsia, complicating childbirth (principal); Z37.0 Single live birth; O70.0 First degree perineal laceration during delivery; O69.82X0 Labor and delivery complicated by other cord entanglement, without compression, not applicable or unspecified; O13.4 Gestational [pregnancy-induced] hypertension without significant proteinuria, complicating childbirth; Z3A.37 37 weeks gestation of pregnancy
CPT/HCPCS: 36415; 59025; 80053; 84550; 85014; 85018; 85025; 86592; 86762; 86850; 86880; 86900; 86901; 86902; 87340; 88307; A9270; J2405; J2590; J2795; J7030; J7120

== ENCOUNTER → 2023-06-17 09:32 | Outpatient (CLI) | payer BC, SELFPAY ==
--- NOTE | ~2023-06-17 | US_ITS ---
Renal-Bladder ultrasound Clinical History: Abnormal findings of blood Technique: Real-time sonographic imaging of the kidneys and urinary bladder was performed. Findings: The right kidney measures 11.0 cm in length and the left kidney measures 10.8 cm. There is no hydronephrosis or renal calculus identified. Renal cortical echogenicity is within normal limits. No renal mass lesion is identified. The urinary bladder is moderately distended at the time of this exam. No intraluminal echoes are iden tified. No abnormal wall thickening is seen. Impression: Unremarkable ultrasound of the kidneys and urinary bladder. Reviewed, dictated and finalized at location M. [employer] Impression: Unremarkable ultrasound of the kidneys and urinary bladder.
== END ==
DX: R79.89 Other specified abnormal findings of blood chemistry (principal)
CPT/HCPCS: 76775

== ENCOUNTER 2025-04-28 11:08 | Emergency (ER) | payer BC, SELFPAY ==
--- NOTE | 2025-04-28 11:18 | ED_ITS ---
HPI - General Adult General Chief complaint: Upper Respiratory Infection Stated complaint: strep Time Seen by Provider: 04/28/25 11:19 Source: patient Mode of arrival: ambulatory Limitations: no limitations History of Present Illness HPI narrative: 35-year-old female patient presents to the [facility] with complaints of sore throat for the past 2-3 days. Patient states she has had low-grade fevers, fatigue, pain with swallowing feeling like her lymph nodes are swollen. Related Data Allergies Allergy/AdvReac Type Severity Reaction Status Date / Time No Known Allergies Allergy Verified 01/15/23 12:35 Review of Systems Review of Systems: CONSTITUTIONAL: Denies fever, chills, or sweats. EYES: Denies visual changes, redness, or discharge. ENT: Denies rhinorrhea, congestion, Positive sore throat, denies otalgia. CARDIOVASCULAR: Denies chest pain, palpitations, or edema. RESPIRATORY: Denies cough or dyspnea. GASTROINTESTINAL: Denies abdominal pain, nausea, vomiting, or diarrhea. GENITOURINARY: Denies dysuria or hematuria. SKIN: Denies rash or itching. MUSCULOSKELETAL: Denies back pain, joint pain, or myalgia. NEUROLOGIC: Denies headache, numbness, or weakness. PSYCHIATRIC: Denies anxiety or depression. PMFSH Past Medical History Medical History IUP (intrauterine ), incidental Renal stones Family History Family History Father Hypertension Social History Social History Smoking status: Never smoker Alcohol intake: current Drinks per week: 1 Substance use: never Lack of Transportation: No Lack of Food: Never True Current Housing: I Have Housing Concerned About Future Housing: No Difficulty Paying Gas/Electric Bills: No Difficulty Paying for Meds: No Currently Unemployed: No Education: Master's Degree or Higher Difficulty w/ Childcare or Family Care: No Living arrangements: with family Spiritual care concerns: No Comments At the time of my signature I agree with nursing past medical history, surgical, social, and family history. There is no relevant family history pertinent to the presenting complaint. Exam Narrative: GENERAL: Well-appearing, well-nourished, and in no acute distress. HEAD: Normocephalic, atraumatic. EYES: PERRLA and EOMI. ENT: Nares clear, no rhinorrhea or epistaxis. Mucous membranes moist. posterior pharynx with erythema, 1+ tonsillar enlargement and white patches noted bilateral sides. The left TM does appear to have some fluid behind it but the right TM is clear. NECK: Supple. No lymphadenopathy CHEST: Clear to auscultation. No respiratory distress. HEART: Regular rate and rhythm. No murmur heard. Normal peripheral pulses. ABDOMEN: Soft, nontender, nondistended, normal active bowel sounds. EXTREMITIES: Normal range of motion. No edema. SKIN: Warm, dry, no rash. NEURO: No focal deficits. Alert and oriented x3. Course Course Level of Care: Express Care Visit Vital Signs Vital signs: Vital Signs Temperature 36.6 C 04/28/25 11:20 Pulse Rate 109 H 04/28/25 11:20 Respiratory Rate 20 04/28/25 11:20 Blood Pressure 106/74 04/28/25 11:20 Pulse Oximetry 100 04/28/25 11:20 Oxygen Delivery Room Air 04/28/25 11:20 Temperature 36.6 C 04/28/25 11:20 Pulse Rate 109 H 04/28/25 11:20 Respiratory Rate 20 04/28/25 11:20 Blood Pressure 106/74 04/28/25 11:20 Pulse Oximetry 100 04/28/25 11:20 Oxygen Delivery Room Air 04/28/25 11:20 Vital signs reviewed. Medical Decision Making MDM Narrative Medical decision making narrative: Patient did test positive for point of care strep. We will discharge home with oral antibiotics for the strep infection. Encouraged patient to take [id number] Flonase and Zyrtec to help with the fluid behind the left ear as well as increase her vitamin C is a help fight off the bacterial infection quicker. Patient verbalized understanding denies any other questions or concerns at this time. Differential Diagnosis Differential Diagnosis: Differential diagnosis: Viral pharyngitis, pharyngitis, group A strep, infec tious mononucleosis, gonococcal pharyngitis, exudative pharyngitis, oral candidiasis. Chronic allergies, postnasal drip, GERD, abscess formation, but glottitis, retropharyngeal abscess formation, or airway obstruction. Vital Signs Vital Signs: Vital Signs Temperature 36.6 C 04/28/25 11:20 Pulse Rate 109 H 04/28/25 11:20 Respiratory Rate 20 04/28/25 11:20 Blood Pressure 106/74 04/28/25 11:20 Pulse Oximetry 100 04/28/25 11:20 Oxygen Delivery Room Air 04/28/25 11:20 Temperature 36.6 C 04/28/25 11:20 Pulse Rate 109 H 04/28/25 11:20 Respiratory Rate 20 04/28/25 11:20 Blood Pressure 106/74 04/28/25 11:20 Pulse Oximetry 100 04/28/25 11:20 Oxygen Delivery Room Air 04/28/25 11:20 Lab Data Labs: Lab Results 04/28/25 Range/Units 11:27 POC Grp A Strep Screen Positive (Negative) Critical Care Time Critical Care Time Critical Care Time: No Discharge Plan Discharge Clinical Impression: Strep throat Patient Disposition: Home Condition: Stable Instructions: Antibiotic Form, Strep Throat (ED) Additional Instructions: -Take the medication as prescribed. Throw away the toothbrush after 24hours of antibiotic. Increase vitamin c 2000mg in AM and 2000mg in PM Use OTC zytrec and flonase for fluid behind th ears. -Eat things that are easy to swallow, like tea or soup, or popsicles to suck on. You might not feel like eating or drinking, but it's important that you get enough liquids. -Oral rinses such as: Salt water gargles and/or may use topical anesthetic (eg. Chloraseptic spray) or lozenges to relieve dryness or throat pain). -Take Tylenol and ibuprofen as needed for pain and fever as directed. -Frequent hand washing or hand supervisor transferring and boxing is one of the best ways to prevent spread of infection. -Follow up with primary care provider in 2-3 days if condition is not improving or seek ER visit if you start breathing fast/has trouble breathing, is not drinking enough fluids, muffle voice, difficulty opening the mouth. Patient Language: Jamaican Prescriptions: New amoxicillin 500 mg tablet 500 mg PO Q12H 10 Days Qty: 20 0RF Follow-up/Referrals: Norma,Sandra Lopez APRN [Primary Care Provider, Unknown] Time of Disposition: 11:33
[2025-04-28 11:20] VITALS: BP 106/74; PULSE 109; RESP 20; TEMP 36.6; O2SAT 100
[2025-04-28 11:30] LABS: EDSTREPNEGPOS1 Positive (Negative)
== END 2025-04-28 11:38 | disposition home or self-care (01) ==
PROVIDERS: Emergency Provider Nurse Practitioner Family; PCP Nurse Practitioner Family
DX: J02.0 Streptococcal pharyngitis (principal)
CPT/HCPCS: 87880; 99213; G0463